=== PATIENT | male | born 1995 | race Caucasian/White ===

== ENCOUNTER 2018-02-20 13:12 | Emergency (ER) | payer SELFPAY ==
--- NOTE | 2018-02-20 13:37 | EDPHYS ---
Physician Documentation [facility] Name: Dashawn Elias Age: 22 yrs Sex: Male : 1995 Arrival Date: 02/20/2018 Time: 13:15 Bed 15 Private MD: ED Physician Alexi Peter HPI: 02/20 13:34 This 22 yrs old Male presents to ER via Ambulatory with complaints of lump in gs chest . 13:34 Description: The affected area is small, confluent. Onset: The symptoms/episode gs began/occurred 1 month(s) ago. Possible cause(s): unknown. Associated signs and symptoms: Pertinent negatives: discharge, drainage, erythema, foreign body sensation, fever, shortness of breath, swelling, vomiting. Modifying factors: the symptoms are alleviated by nothing, the symptoms are aggravated by nothing. Severity of symptoms: At their worst the symptoms were very mild, in the emergency department the symptoms are unchanged. The patient has experienced similar episodes in the past. Historical: - Allergies: 13:21 No Known Allergies; hj - Home Meds: 13:21 None [Active]; hj - PMHx: 13:21 None; hj - PSHx: 13:21 Appendectomy; hj - Immunization history:: Adult Immunizations up to date. - Social history:: Smoking status: Patient uses tobacco products, Patient/guardian denies using alcohol. - Ebola Screening: : Patient negative for fever greater than or equal to 101.5 degrees Fahrenheit, and additional compatible Ebola Virus Disease symptoms Patient denies exposure to infectious person Patient denies travel to an Ebola-affected area in the 21 days before illness onset. ROS: 13:34 All other systems are negative. gs Exam: 13:34 ENT: Nares patent. No nasal discharge, no septal abnormalities noted. Tympanic gs membranes are normal and external auditory canals are clear. Oropharynx with no redness, swelling, or masses, exudates, or evidence of obstruction, uvula midline. Mucous membranes moist. Cardiovascular: Regular rate and rhythm with a normal S1 and S2. No gallops, murmurs, or rubs. Normal PMI, no JVD. No pulse deficits. Respiratory: Lungs have equal breath sounds bilaterally, clear to auscultation and percussion. No rales, rhonchi or wheezes noted. No increased work of breathing, no retractions or nasal flaring. Abdomen/GI: Soft, non-tender, with normal bowel sounds. No distension or tympany. No guarding or rebound. No evidence of tenderness throughout. Back: No spinal tenderness. No costovertebral tenderness. Full range of motion. Skin: Warm, dry with normal turgor. Normal color with no rashes, no lesions, and no evidence of cellulitis. 13:34 Constitutional: The patient appears alert, awake. 13:34 Chest/axilla: 4x4 cm lipomatous mass medial subcostal area right chest nontender. 13:34 Skin: abscess, not appreciated, cellulitis, is not appreciated. Vital Signs: 13:21 BP 108 / 67; Pulse 60; Resp 18; Temp 97.7(O); Pulse Ox 100% on R/A; Weight 63.5 kg; hj Height 6 ft. 1 in. (185.42 cm); Pain 7/10; 13:21 Body Mass Index 18.47 (63.50 kg, 185.42 cm) MDM: 13:33 Patient medically screened. 13:34 Data reviewed: vital signs, nurses notes. Counseling: I had a detailed discussion with the patient and/or guardian regarding: the historical points, exam findings, and any diagnostic results supporting the discharge/admit diagnosis, the need for outpatient follow up. Administered Medications: No medications were administered Disposition: 02/20/18 13:36 Discharged to Home. Impression: Lipomatosis, not elsewhere classified. - Condition is Stable. - Discharge Instructions: Lipoma. - Medication Reconciliation Form, Thank You Letter, Antibiotic Education, Prescription Opioid Use form. - Follow up: Sampson Gold MD; When: 2 - 3 days; Reason: Re-evaluation by your physician. Signatures: Asa Rivera RN RN June Whittaker RN RN rb1 Alexi Peter MD MD Corrections: (The following items were deleted from the chart) 13:56 13:36 02/20/2018 13:36 Discharged to Home. Impression: Lipomatosis, not elsewhere rb1 classified. Condition is Stable. Forms are Medication Reconciliation Form, Thank You Letter, Antibiotic Education, Prescription Opioid Use. Follow up: Dr. Sampson Gold; When: 2 - 3 days; Reason: Re-evaluation by your physician.
--- NOTE | 2018-02-20 13:37 | ER ---
Nurse's Notes [facility] Name: Dashawn Elias Age: 22 yrs Sex: Male : 1995 Arrival Date: 02/20/2018 Time: 13:15 Bed 15 Private MD: Diagnosis: Lipomatosis, not elsewhere classified Presentation: 02/20 13:19 Presenting complaint: Patient states: shabnam been having this problem, lump on the middle hj of my chest; i noticed it 6 months; reports pain; denies fever and chills; denies N/V;. Transition of care: patient was not received from another setting of care. Onset of symptoms was February 20, 2018. Risk Assessment: Do you want to hurt yourself or someone else? Patient reports no desire to harm self or others. Initial Sepsis Screen: Does the patient meet any 2 criteria? No. Patient's initial sepsis screen is negative. Does the patient have a suspected source of infection? No. Patient's initial sepsis screen is negative. Care prior to arrival: None. 13:19 Method Of Arrival: Ambulatory 13:19 Acuity: YUDY 4 hj Triage Assessment: 13:20 General: Appears in no apparent distress. uncomfortable, Behavior is calm, cooperative, hj appropriate for age. Pain: Complains of pain in chest Pain currently is 7 out of 10 on a pain scale. Historical: - Allergies: 13:21 No Known Allergies; hj - Home Meds: 13:21 None [Active]; hj - PMHx: 13:21 None; hj - PSHx: 13:21 Appendectomy; hj - Immunization history:: Adult Immunizations up to date. - Social history:: Smoking status: Patient uses tobacco products, Patient/guardian denies using alcohol. - Ebola Screening: : Patient negative for fever greater than or equal to 101.5 degrees Fahrenheit, and additional compatible Ebola Virus Disease symptoms Patient denies exposure to infectious person Patient denies travel to an Ebola-affected area in the 21 days before illness onset. Screenin:20 Abuse screen: Denies threats or abuse. Denies injuries from another. Nutritional hj screening: No deficits noted. Tuberculosis screening: No symptoms or risk factors identified. Fall Risk None identified. Assessment: 13:30 General: Appears in no apparent distress. comfortable, slender, Behavior is calm, rb1 cooperative, Denies fever. General: Reports Lump located on the right anterior ribs. Pain: Complains of pain in right ribs Pain currently is 8 out of 10 on a pain scale. Neuro: Level of Consciousness is awake, alert, obeys commands, Oriented to person, place, time, situation. Cardiovascular: Capillary refill < 3 seconds is brisk in bilateral fingers. Respiratory: Airway is patent Respiratory effort is even, unlabored, Respiratory pattern is regular, symmetrical. GI: No signs and/or symptoms were reported involving the gastrointestinal system. : No signs and/or symptoms were reported regarding the genitourinary system. Derm: Skin is pink, warm \T\ dry. Vital Signs: 13:21 BP 108 / 67; Pulse 60; Resp 18; Temp 97.7(O); Pulse Ox 100% on R/A; Weight 63.5 kg; hj Height 6 ft. 1 in. (185.42 cm); Pain 7/10; 13:21 Body Mass Index 18.47 (63.50 kg, 185.42 cm) ED Course: 13:15 Patient arrived in ED. sb2 13:20 Triage completed. 13:20 Arm band placed on right wrist. hj 13:21 Patient has correct armband on for positive identification. Bed in low position. Call light in reach. Side rails up X 1. 13:24 Alexi Peter MD is Attending Physician. 13:30 June Whittaker, LIZET is Primary Nurse. rb1 13:36 Sampson Gold MD is Referral Physician. 13:56 No provider procedures requiring assistance completed. Patient did not have IV access rb1 during this emergency room visit. Administered Medications: No medications were administered Outcome: 13:36 Discharge ordered by MD. gs 13:56 Patient left the ED. rb1 13:56 Discharged to home ambulatory. rb1 13:56 Condition: stable 13:56 Discharge instructions given to patient, Instructed on discharge instructions, follow up and referral plans. Demonstrated understanding of instructions, follow-up care, Prescriptions given X none Signatures: Asa Rivera RN RN June Whittaker, Alexi Christianson RN, MD MD Marylou Keller sb2 Corrections: (The following items were deleted from the chart) 13:23 13:21 Pulse 60bpm; Resp 18bpm; Pulse Ox 100% RA; Temp 97.7F Oral; 63.5 kg; Height 6 ft. hj 1 in.; BMI: 18.4; Pain 7/10; hj
== END 2018-02-20 13:56 | disposition home or self-care (01) ==
LOC: ER 13:12
DX: E88.2 Lipomatosis, not elsewhere classified (principal); Z72.0 Tobacco use
CPT/HCPCS: 99282